=== PATIENT | female | born 1950 | race Caucasian/White ===

== ENCOUNTER 2017-06-16 10:27 | Outpatient (CLI) | payer MEDICARE ==
[2017-06-16] MEDS ORDERED: Gadobenate Dimeglumine 529 MG/1 ML (20ML VIAL) ONE (13:28)
== END 2017-06-16 10:28 | disposition home or self-care (01) ==
LOC: BICMRI 10:27
PROVIDERS: ATTEND Psychiatry & Neurology Neurology
DX: G35 Multiple sclerosis (principal); G37.9 Demyelinating disease of central nervous system, unspecified
CPT/HCPCS: 36415; 70553; 80053; 85025; A9579

== ENCOUNTER 2018-07-06 08:31 | Outpatient (CLI) | payer MEDICARE ==
--- NOTE | 2018-07-06 17:14 | MRI ---
MRI BRAIN WITH AND WITHOUT CONTRAST: Date: 07/06/18 INDICATIN: Migraine with aura. History of sellar/suprasellar mass. COMPARISON: 06/30/13. FINDINGS: Dating back to 2013 exam, there is progressive volume of an enhancing sellar/suprasellar mass located at and to the right of midline with slight leftward deviation, as well as effacement of the infundib ulum. Mass again demonstrates intrinsic T1 hyperintensity, although there is an enhancing component w hich is increasing in volume. This favors a slow growing craniopharyngioma. Craniocaudal dimension of the mass is approximately 8 mm and transversion dimension is approximately 6 mm. Mass abuts the unde rsurface of the optic chiasm. No ventriculomegaly or midline shift. No acute territorial infarction Redemonstration of multifocal w franchesca matter signal abnormalities as were documented on prior brain MRI of 06/16/17, in keeping with sachin mahad's history of multiple sclerosis. IMPRESSION: 1. Interval size progression of sellar/suprasellar mass as discussed above, favoring a craniopharyng ioma. 2. Redemonstration of multifocal white matter signal abnormalities of the cerebral hemispheres, mili elative to patient's provided clinical history of multiple sclerosis. 3. No acute intra-axial mass effect. POS: NATALYA
== END 2018-07-06 08:32 | disposition home or self-care (01) ==
LOC: BICMRI 08:31
PROVIDERS: ATTEND Psychiatry & Neurology Neurology
DX: G43.109 Migraine with aura, not intractable, without status migrainosus (principal); G35 Multiple sclerosis; E23.7 Disorder of pituitary gland, unspecified; R90.89 Other abnormal findings on diagnostic imaging of central nervous system
CPT/HCPCS: 70553; 82565

== ENCOUNTER 2020-04-19 06:31 | Outpatient (CLI) | payer MEDICARE ==
[2020-04-19 10:31] LABS: Bilirubin Neg (Negative); Blood, Urine Negative (Negative); Clarity Clear (Clear); Glucose, Urine (Dipstick) Normal (Negative); Ketone, Urine Negative (Negative); Leukocyte Negative (Negative); Nitrite Negative (Negative); Protein, Urine (Dipstick) 15 mg/dl (Neg-Trace); Urobilinogen Normal mg/dL (Less than 2)
[2020-04-19 10:38] LABS: #Eosinphils 0.1 10x3/uL (0.0-0.5); #Monocytes 0.4 10x3/uL (0.0-1.1); #Neutrophils 2.3 10x3/uL (1.5-8.4); %Eosinophils 1.2 % (0.0-6.0); %Lymphocytes 32.6 % (18.0-47.0); %Monocytes 9.4 % (0.0-10.0); %Neutrophils 55.6 % (40.0-75.0); Hemoglobin 13.9 g/dL (12.0-16.0); Mean Corpuscular HGB CONC 32.6 G/DL (32.0-36.0); Mean Corpuscular Hemoglobin 30.1 PG (27.0-33.0); Mean Corpuscular Volume 92.4 fl (80.0-100.0); Mean Platelet Volume 11.3 fl (7.4-10.4); Platelet Count 229 10x3/uL (130-400); RBC Distribution Width 12.2 % (11.5-14.5); RBC/HPF 0-3 HPF (0-3); Red Blood Cell (RBC) Count 4.62 10x6/uL (3.90-5.20); Squamous Epithelial 0-3 HPF (0-3); WBC/HPF 0-3 HPF (0-3); White Blood Cell (WBC) Count 4.1 10x3/uL (4.5-11.0)
[2020-04-19 10:39] LABS: Bacteria/HPF Rare-Few HPF (None Seen); Calcium Oxalate Crystals 1+ HPF (None Seen)
[2020-04-19 10:40] LABS: Mucous/LPF Rare LPF (<2+)
[2020-04-19 10:52] LABS: Prothrombin Time 10.7 sec (9.5-12.1)
[2020-04-19 11:47] LABS: Anion Gap 14 mmol/L (10-20); BUN (Urea Nitrogen) 14 mg/dL (9.8-20.1); Calc. Creatinine Clearance 0 mL/min (70-130); Calcium 9.4 mg/dL (7.8-10.44); Carbon Dioxide 26 mmol/L (23-31); Chloride 105 mmol/L (98-107); Glucose 100 mg/dL (80-115); Potassium 4.4 mmol/L (3.5-5.1); Sodium 141 mmol/L (136-145)
[2020-04-19 18:33] LABS: SARS-CoV-2 MS2 Positive; SARS-CoV-2 N Gene Negative; SARS-CoV-2 S Gene Negative; SARS-CoV-2 by NAA Not Detected (NotDetected); SARS-CoV-2 orf1ab Negative
--- NOTE | 2020-04-19 20:33 | EKG ---
Test Reason : Blood Pressure : / mmHG Vent. Rate : 063 BPM Atrial Rate : 063 BPM P-R Int : 138 ms QRS Dur : 080 ms QT Int : 394 ms P-R-T Axes : 077 054 061 degrees QTc Int : 403 ms Normal sinus rhythm Normal ECG No previous ECGs available Confirmed by DR. Padmini HILL MD ([id number]) on 04/19/2020 8:33:20 PM Referred By: MARIAN Confirmed By:DR. Padmini HILL MD
== END 2020-04-19 06:32 | disposition home or self-care (01) ==
LOC: LABBT 06:31
PROVIDERS: ATTEND Orthopaedic Surgery
DX: Z01.818 Encounter for other preprocedural examination (principal); Z20.828 Contact with and (suspected) exposure to other viral communicable diseases; M17.11 Unilateral primary osteoarthritis, right knee
CPT/HCPCS: 80048; 81001; 85025; 85610; 87081; 93005; U0003; 87635; 93010

== ENCOUNTER 2020-04-24 06:53 | Day surgery (SDC) | payer MEDICARE ==
[2020-04-18 09:52] VITALS: BMI 28.3
[2020-04-24] MEDS ORDERED: Vancomycin 1 GM/200 ML BAG ONE (07:33)
[2020-04-24] MEDS ORDERED: Tranexamic Acid 1,000 MG/10 ML VIAL ONE (07:33)
[2020-04-24] MEDS ORDERED: Sodium Chloride 0.9% 100 ML ONE (07:33)
[2020-04-24] MEDS ORDERED: Midazolam HCl 2 mg/2 ml Vial ONE (08:17)
[2020-04-24] MEDS ORDERED: Fentanyl 100 MCG/2 ML VIAL ONE ×5 (08:17→14:44)
[2020-04-24] MEDS ORDERED: HYDROcodone/Acetaminophen 10/325 mg Tablet PO PRN ×3 (08:59→09:30)
[2020-04-24] MEDS ORDERED: Acetaminophen 325 MG TAB PO PRN (08:59)
[2020-04-24] MEDS ORDERED: Ondansetron PF 4 MG/2 ML Vial IVP PRN ×2 (08:59→09:30)
[2020-04-24] MEDS ORDERED: diphenhydrAMINE 25 MG CAP PO PRN (08:59)
[2020-04-24] MEDS ORDERED: Zolpidem Tartrate 5 MG TAB PO PRN ×2 (08:59→09:30)
[2020-04-24] MEDS ORDERED: Promethazine HCl 25 MG/ML VIAL IM PRN ×3 (08:59→11:05)
[2020-04-24] MEDS ORDERED: Fentanyl 100 MCG/2 ML VIAL IV PRN (09:26)
[2020-04-24] MEDS ORDERED: traMADol HCl 50 MG TAB PO PRN ×2 (09:30)
[2020-04-24] MEDS ORDERED: Ropivacaine HCl/PF 250 ML in Premix Bag 1 BAG NERVE BLCK SCH (09:30)
[2020-04-24] MEDS ORDERED: Ropivacaine 0.2% HCl/PF (40 MG/20 ML VIAL) ONE (09:54)
[2020-04-24] MEDS ORDERED: Dexamethasone 20 MG/5 ML VIAL ONE (09:54)
[2020-04-24] MEDS ORDERED: Bupivacaine HCl 0.5%/Epinephrine 1:200,000/PF 30 ml Vial ONE (09:54)
[2020-04-24] MEDS ORDERED: PROPOFOL 200 MG/20 ML VIAL ONE (09:54)
[2020-04-24] MEDS ORDERED: Ondansetron PF 4 MG/2 ML Vial ONE (09:54)
[2020-04-24] MEDS ORDERED: Promethazine HCl 25 MG/ML VIAL SLOW IVP PRN (11:05)
[2020-04-24] MEDS ORDERED: Ondansetron HCl/PF 4 MG/2 ML Vial IVP PRN (11:05)
--- NOTE | 2020-04-24 11:12 | OP ---
DATE OF PROCEDURE: 04/24/2020 PROCEDURE PERFORMED: Right total knee arthroplasty using [place] [employer] 4 femur, 3 tibia, 9-mm CS X3 polyethylene and A29 patella. DIRECTOR IT PROJECT: Zaida Davis PA-C The executive administrative assistant/co-surgeon was present through the entire procedure and was responsible for providing exposure, tissue retraction and any necessary limb or tissue manipulation required to obtain necessary reduction or hardware placement. The executive administrative assistant/co-surgeon also provided bleeding control, tissue closure, and suturing in conjunction with the primary surgeon. BLOOD LOSS: Minimal. SPECIMEN: None. DRAINS: None. COMPLICATION: None. TOURNIQUET TIME: 53 minutes. PROCEDURE IN DETAIL: After informed consent was obtained in the preoperative holding area, the patient was taken to the operative suite where general anesthesia was induced. Once adequate level of general anesthesia was obtained, the patient was positioned and a well-padded tourniquet was placed around the right proximal thigh. The right lower extremity was then prepped and draped in the usual sterile fashion. Prior to exsanguination, a time-out was called and all members of the surgical team agreed upon site, surgeon, and patient. The extremity was then exsanguinated and the tourniquet was raised. A midline longitudinal incision was then made directly over the patella extending 2 fingerbreadths above the superior pole of the patella and 2 fingerbreadths inferior to the inferior patellar pole of the patella. Deeper subcutaneous layers were dissected sharply and local bleeding was controlled with Bovie electrocautery. A quad tendon longitudinal split was then made sharply and a median parapatellar arthrotomy was carried out both sharp and with Bovie electrocautery, carried down to 1 fingerbreadth medial to the tibial tubercle. The knee was then placed into flexion and the patella was everted nicely, and a copious fat pad ectomy was performed allowing for greater exposure of the tibia. The computer-assisted distal femoral fiducial was then placed and pinned firmly, and the distal femoral cutting guide was pinned firmly into place. The oscillating saw was then used to remove the appropriate amount of bone. The 4-in-1 cutting block was then placed on the distal femur and the oscillating saw was used to remove the appropriate amount of bone off the anterior, posterior, and chamfer cuts. After completion of bone cuts, the anterior cruciate ligament was resected sharply and the posterior cruciate ligament retractor was placed and the tibia was subluxed for better exposure. Partial meniscectomies were carried out, and the tibial computer-assisted fiducial was pinned, and the cutting guide was placed. Oscillating saw was then used to remove the bone, with Hohmann retractors used to take care and protect the collateral ligaments. After the tibial resection was performed, a laminar sports management professor was placed in between the freshened bone cuts. The knee placed at 90 degrees and further bilateral meniscectomies were carried out, and the curved osteotome and curettage were used to remove any excess bone spurs in the posterior compartment. The trial femoral component, tibial baseplate were placed with the appropriate polyethylene trial insert with an appropriate polyethylene spacer and patellar button. The knee was taken through full range of motion with flexion and extension from 0 to 90 degrees and patellar broach squarely in the trochlea without any squinting or subluxation noted. The knee was also stable to varus and valgus stressing at 0, 15, 45, and 90 degrees of flexion. The drawer was negative. All trial components were then removed and the keel punch was used to provide the appropriate defect in the tibia with a mallet. The freshened bone cuts were copiously irrigated with pulsatile lavage of about 1.5 L to remove all excess debris. The freshened bone cuts were then dried with suction and lap sponge. The knee was placed in flexion and retractors were placed to provide access to all bone cuts. Tobramycin-impregnated methyl methacrylate cement was then placed on the freshened bone cuts and implants which were malleted firmly into place. Curettage and Riesel elevators were used to remove any excess bone cement. The knee was placed into full extension and the patellar button was placed under compression, and the cement was allowed to cure. Once completed, the components were again taken through full range of motion and copious irrigation of the knee was carried out with another liter of normal saline. All components were inspected fully with full range of motion and varus and valgus stressing. There was no laxity noted and full extension was observed clinically. Primary closure was accomplished with #2 interrupted Vicryl stitch of the arthrotomy defect. This was oversewn with a #2 running Quill barbed stitch. The gravitational platelet system was then injected into the arthrotomy prior to closure. The subcutaneous layer was then closed with a running 0 barbed Monocryl stitch and skin closure accomplished with a running subcuticular 3-0 Monocryl barbed Quill stitch and augmented with cement on the skin. Tourniquet was lowered. Good spontaneous return of distal pulses was noted clinically and a sterile dressing was applied to the incision. The procedure was terminated without any complications. The patient was awakened in the operative suite and the was removed, and the patient was taken to the recovery room in stable condition. Job ID: [id number]
--- NOTE | 2020-04-24 11:49 | RAD ---
XR Knee Rt 2 View History: Total knee postop Comparison: None. Findings: Satisfactory appearance right total knee arthroplasty and patellar resurfacing. Expected po stoperative gas and edema. 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 Impression: Satisfactory postoperative appearance.
[2020-04-24] MEDS ORDERED: Promethazine HCl 25 MG/ML VIAL ONE (11:52)
[2020-04-24] MEDS ORDERED: Ketorolac Tromethamine 30 MG/ML VIAL ONE (12:11)
[2020-04-24] MEDS: Ketorolac Tromethamine 30 MG/ML VIAL IVP SCH ×3 (12:12→23:21)
[2020-04-24] MEDS: Sodium Chloride 0.9% 1,000 ML IV SCH ×2 (17:22→21:07)
[2020-04-24] MEDS: CEFAZOLIN 2 GM in Premix Bag 1 BAG IVPB SCH (18:18)
[2020-04-24] MEDS: Aspirin 81 mg Enteric Coated Tablet PO SCH (21:06)
[2020-04-25] MEDS: CEFAZOLIN 2 GM in Premix Bag 1 BAG IVPB SCH (02:17)
[2020-04-25] MEDS: Ketorolac Tromethamine 30 MG/ML VIAL IVP SCH ×4 (05:10→23:40)
[2020-04-25] MEDS: Sodium Chloride 0.9% 1,000 ML IV SCH ×2 (05:12→15:15)
[2020-04-25 06:16] LABS: Hemoglobin 12.2 g/dL (12.0-16.0); Mean Corpuscular HGB CONC 33.7 g/dL (32.0-36.0); Mean Corpuscular Hemoglobin 31.5 pg (27.0-31.0); Mean Corpuscular Volume 93.5 fL (78.0-98.0); Mean Platelet Volume 9.4 fL (7.4-10.4); Platelet Count 204 thou/uL (130-400); RBC Distribution Width 11.3 % (11.5-14.5); Red Blood Cell (RBC) Count 3.86 mill/uL (4.20-5.40); White Blood Cell (WBC) Count 13.7 thou/uL (4.8-10.8)
[2020-04-25] MEDS: Multivitamin W/ Minerals 1 TAB PO SCH (08:52)
[2020-04-25] MEDS: Senokot S 8.6-50 MG TAB PO SCH ×2 (08:52→20:00)
[2020-04-25] MEDS: Calcium Polycarbophil 625 MG TAB PO SCH (08:53)
[2020-04-25] MEDS: Aspirin 81 mg Enteric Coated Tablet PO SCH ×2 (08:53→20:00)
[2020-04-25] MEDS: Zinc Sulfate 220 MG CAP PO SCH (08:53)
[2020-04-25] MEDS: Cholecalciferol 1,000 UNITS (25 MCG) TAB PO SCH (08:53)
[2020-04-25] MEDS: Vit A,C & E/Lutein/Minerals Tablet PO SCH (08:53)
[2020-04-25] MEDS: Ferrous Gluconate 324 MG TAB PO SCH ×2 (08:53→20:00)
[2020-04-25] MEDS ORDERED: Multivitamin W/ Minerals 1 TAB PO SCH (09:00)
[2020-04-25] MEDS: Potassium Chloride 8 MEQ TAB PO SCH (09:45)
[2020-04-25] MEDS: HYDROcodone/Acetaminophen 10/325 mg Tablet PO PRN ×3 (14:10→23:38)
[2020-04-26] MEDS: Sodium Chloride 0.9% 1,000 ML IV SCH ×3 (00:45→22:14)
[2020-04-26] MEDS: Ketorolac Tromethamine 30 MG/ML VIAL IVP SCH (05:40)
[2020-04-26] MEDS: HYDROcodone/Acetaminophen 10/325 mg Tablet PO PRN ×3 (06:43→16:13)
[2020-04-26 07:04] LABS: Hemoglobin 11.8 g/dL (12.0-16.0); Mean Corpuscular HGB CONC 33.5 g/dL (32.0-36.0); Mean Corpuscular Hemoglobin 31.3 pg (27.0-31.0); Mean Corpuscular Volume 93.4 fL (78.0-98.0); Platelet Count 183 thou/uL (130-400); RBC Distribution Width 11.4 % (11.5-14.5); Red Blood Cell (RBC) Count 3.78 mill/uL (4.20-5.40)
[2020-04-26] MEDS: Senokot S 8.6-50 MG TAB PO SCH ×2 (08:20→21:01)
[2020-04-26] MEDS: Aspirin 81 mg Enteric Coated Tablet PO SCH ×2 (08:21→21:01)
[2020-04-26] MEDS: Multivitamin W/ Minerals 1 TAB PO SCH (08:21)
[2020-04-26] MEDS: Ferrous Gluconate 324 MG TAB PO SCH ×2 (08:21→21:01)
[2020-04-26] MEDS: Zinc Sulfate 220 MG CAP PO SCH (08:21)
[2020-04-26] MEDS: Vit A,C & E/Lutein/Minerals Tablet PO SCH (08:21)
[2020-04-26] MEDS: Cholecalciferol 1,000 UNITS (25 MCG) TAB PO SCH (08:21)
[2020-04-26] MEDS: Calcium Polycarbophil 625 MG TAB PO SCH (08:21)
[2020-04-26] MEDS: Potassium Chloride 8 MEQ TAB PO SCH (08:23)
[2020-04-26] MEDS ORDERED: Ondansetron ODT 4 MG TAB SL PRN (14:15)
[2020-04-27] MEDS: HYDROcodone/Acetaminophen 10/325 mg Tablet PO PRN ×3 (00:13→09:43)
[2020-04-27] MEDS: Sodium Chloride 0.9% 1,000 ML IV SCH (06:51)
[2020-04-27 08:35] VITALS: TEMP 98.2
[2020-04-27] MEDS: Calcium Polycarbophil 625 MG TAB PO SCH (08:52)
[2020-04-27] MEDS: Senokot S 8.6-50 MG TAB PO SCH (08:52)
[2020-04-27] MEDS: Aspirin 81 mg Enteric Coated Tablet PO SCH (08:52)
[2020-04-27] MEDS: Ferrous Gluconate 324 MG TAB PO SCH (08:52)
[2020-04-27] MEDS: Zinc Sulfate 220 MG CAP PO SCH (08:52)
[2020-04-27] MEDS: Cholecalciferol 1,000 UNITS (25 MCG) TAB PO SCH (08:52)
[2020-04-27] MEDS: Multivitamin W/ Minerals 1 TAB PO SCH (08:52)
[2020-04-27] MEDS: Vit A,C & E/Lutein/Minerals Tablet PO SCH (08:52)
[2020-04-27] MEDS: Potassium Chloride 8 MEQ TAB PO SCH (08:56)
[2020-04-27 13:22] VITALS: BP 125/67
[2020-05-01] MEDS ORDERED: [UNRECOGNIZED DRUG - OTHER] IM SCH (09:00)
--- NOTE | 2020-05-01 10:35 | DIS ---
DATE OF ADMISSION: 04/24/2020 DATE OF DISCHARGE: 04/27/2020 This is Jesse Caery PA-C dictating a report for Chad Talamantes MD. PREOPERATIVE DIAGNOSIS: Right knee degenerative arthritis. POSTOPERATIVE DIAGNOSIS: Right knee degenerative arthritis. PROCEDURE PERFORMED: The patient underwent a right total knee replacement. HOSPITAL COURSE: Hospital stay was unremarkable. She was admitted to [place] [id number], where she worked with staff, Physical therapy, Occupational therapy, and progressed quite well. By 04/27/2020, she is ready to discharge home. DISCHARGE CONDITION: Good/stable. DISPOSITION: Home with family. FOLLOWUP: Followup would be in 2 to 3 weeks or sooner if there are problems and/or concerns. DISCHARGE MEDICATIONS: Given with usage instructions. Job ID: [id number]
== END 2020-04-27 14:01 | disposition home or self-care (01) ==
LOC: SDC 06:53 → EDSTATUS 09:30 → SURG B 16:50 → SDC 04-27 14:01
PROVIDERS: ATTEND Orthopaedic Surgery
PROC: 0SRC0J9 Replacement of Right Knee Joint with Synthetic Substitute, Cemented, Open Approach (ICD-10-PCS; principal; 2020-04-24)
DX: M17.11 Unilateral primary osteoarthritis, right knee (principal); K21.9 Gastro-esophageal reflux disease without esophagitis; Z79.899 Other long term (current) drug therapy
CPT/HCPCS: 27447; 73560; 85027; 97110 ×3; 97116 ×4; 97139 ×4; 97530 ×2; C1713; C1776; 36415; J0690; J1100; J1885; J2250; J2405; J2550; J2704; J2795; J3010; J3370; J3490; Q0162; Q0163

== ENCOUNTER 2022-02-04 09:46 | Outpatient (CLI) | payer MEDICARE ==
[2022-02-04 11:37] LABS: #Basophils 0.1 10x3/uL (0.0-0.2); #Eosinphils 0.1 10x3/uL (0.0-0.5); #Monocytes 0.4 10x3/uL (0.0-1.1); #Neutrophils 2.5 10x3/uL (1.5-8.4); %Eosinophils 1.9 % (0.0-6.0); %Lymphocytes 34.9 % (18.0-47.0); Mean Corpuscular HGB CONC 34.3 g/dL (32.0-36.0); Mean Corpuscular Hemoglobin 30.7 pg (27.0-33.0); Mean Corpuscular Volume 89.4 fl (81.6-98.3); Mean Platelet Volume 11.3 fl (7.4-10.4); Platelet Count 222 10x3/uL (150-450); RBC Distribution Width 11.9 % (11.5-14.5); Red Blood Cell (RBC) Count 4.24 10x6/uL (3.90-5.03); White Blood Cell (WBC) Count 4.8 10x3/uL (3.5-10.5)
[2022-02-04 11:51] LABS: Anion Gap 13 mmol/L (10-20); BUN (Urea Nitrogen) 16 mg/dL (9.8-20.1); Calc. Creatinine Clearance 0 mL/min (70-130); Calcium 9.4 mg/dL (7.8-10.44); Carbon Dioxide 26 mmol/L (23-31); Chloride 107 mmol/L (98-107); Estimated GFR 89; Glucose 110 mg/dL (80-115); Potassium 4.5 mmol/L (3.5-5.1); Sodium 141 mmol/L (136-145)
== END 2022-02-04 09:47 | disposition home or self-care (01) ==
LOC: LABBT 09:46
PROVIDERS: ATTEND Orthopaedic Surgery
DX: Z01.818 Encounter for other preprocedural examination (principal); Z20.822 Contact with and (suspected) exposure to COVID-19
CPT/HCPCS: 80048; 85025; 87811; 93005; 93010

== ENCOUNTER 2022-02-07 05:47 | Day surgery (SDC) | payer MEDICARE ==
[2022-02-06 10:58] VITALS: BMI 27.4
[2022-02-07] MEDS ORDERED: Midazolam HCl 2 mg/2 ml Vial ONE ×2 (06:16→07:00)
[2022-02-07] MEDS ORDERED: SUGAMMADEX SODIUM 200 MG/2 ML VIAL ONE (06:17)
[2022-02-07] MEDS ORDERED: fentaNYL Citrate/PF 100 MCG/2 ML SYRINGE ONE (06:17)
[2022-02-07] MEDS ORDERED: Fentanyl 100 MCG/2 ML VIAL ONE (07:00)
[2022-02-07] MEDS ORDERED: Ropivacaine 0.5% HCl/PF (150 MG/30 ML VIAL) ONE (07:00)
[2022-02-07] MEDS ORDERED: Sodium Chloride 0.9% 100 ML ONE (07:22)
[2022-02-07] MEDS ORDERED: CEFAZOLIN 2 GM VIAL ONE (07:22)
[2022-02-07] MEDS ORDERED: PROPOFOL 200 MG/20 ML VIAL ONE (07:49)
[2022-02-07] MEDS ORDERED: PHENYLEPHRINE-NS 100 MCG/ML 10 ML SYRINGE ONE (07:49)
[2022-02-07] MEDS ORDERED: Ondansetron PF 4 MG/2 ML Vial ONE (07:49)
[2022-02-07] MEDS ORDERED: Dexamethasone 20 MG/5 ML VIAL ONE (07:49)
[2022-02-07] MEDS ORDERED: Promethazine HCl 25 MG/ML VIAL IM PRN (08:45)
[2022-02-07] MEDS ORDERED: traMADol HCl 50 MG TAB PO PRN ×2 (08:45)
[2022-02-07] MEDS ORDERED: Ondansetron PF 4 MG/2 ML Vial IVP PRN (08:45)
[2022-02-07] MEDS ORDERED: Zolpidem Tartrate 5 MG TAB PO PRN (08:45)
[2022-02-07] MEDS ORDERED: Ropivacaine 0.2% 550 ML 550 ML NERVE BLCK SCH (08:45)
[2022-02-07] MEDS ORDERED: HYDROcodone/Acetaminophen 10/325 mg Tablet PO PRN ×2 (08:45)
== END 2022-02-07 11:15 | disposition home or self-care (01) ==
LOC: SDC 05:47
PROVIDERS: ATTEND Orthopaedic Surgery
PROC: 0LQ10ZZ Repair Right Shoulder Tendon, Open Approach (ICD-10-PCS; principal; 2022-02-07)
PROC: 0LS30ZZ Reposition Right Upper Arm Tendon, Open Approach (ICD-10-PCS; 2022-02-07)
PROC: 0RHJ04Z Insertion of Internal Fixation Device into Right Shoulder Joint, Open Approach (ICD-10-PCS; 2022-02-07)
DX: M75.111 Incomplete rotator cuff tear or rupture of right shoulder, not specified as traumatic (principal); M66.821 Spontaneous rupture of other tendons, right upper arm; M75.81 Other shoulder lesions, right shoulder; G35 Multiple sclerosis; Z85.3 Personal history of malignant neoplasm of breast; Z79.899 Other long term (current) drug therapy; Z79.2 Long term (current) use of antibiotics; Z87.891 Personal history of nicotine dependence; Z20.822 Contact with and (suspected) exposure to COVID-19; Z98.890 Other specified postprocedural states
CPT/HCPCS: 23412; 23430; A4306; C1713; J0690; J1100; J2250; J2405; J2704; J2795; J3010; J3490

== ENCOUNTER 2023-07-18 10:00 | Outpatient (CLI) | payer MEDICARE ==
[2023-07-18 11:39] LABS: #Basophils 0.04 10x3/uL (0.0-0.2); #Eosinphils 0.05 10x3/uL (0.0-0.5); #Monocytes 0.36 10x3/uL (0.0-1.1); #Neutrophils 2.52 10x3/uL (1.5-8.4); %Basophils 0.8 % (0.0-2.0); %Eosinophils 1.1 % (0.0-6.0); %Lymphocytes 37.3 % (18.0-47.0); %Monocytes 7.6 % (0.0-10.0); Hemoglobin 13.7 g/dL (12.0-15.5); Mean Corpuscular HGB CONC 35.1 g/dL (32.0-36.0); Mean Corpuscular Volume 91.1 fl (81.6-98.3); Mean Platelet Volume 11.3 fl (7.4-10.4); Platelet Count 212 10x3/uL (150-450); Red Blood Cell (RBC) Count 4.28 10x6/uL (3.90-5.03); White Blood Cell (WBC) Count 4.8 10x3/uL (3.5-10.5)
[2023-07-18 11:54] LABS: Prothrombin Time 10.7 sec (9.5-12.1)
[2023-07-18 12:16] LABS: Anion Gap 11 mmol/L (10-20); BUN (Urea Nitrogen) 19 mg/dL (9.8-20.1); Calc. Creatinine Clearance 0 mL/min (70-130); Calcium 9.2 mg/dL (7.8-10.44); Carbon Dioxide 25 mmol/L (23-31); Chloride 107 mmol/L (98-107); Estimated GFR 90; Glucose 117 mg/dL (80-115); Potassium 4.4 mmol/L (3.5-5.1); Sodium 139 mmol/L (136-145)
== END 2023-07-18 10:01 | disposition home or self-care (01) ==
LOC: LABBT 10:00
PROVIDERS: ATTEND Orthopaedic Surgery
DX: Z01.818 Encounter for other preprocedural examination (principal); M17.12 Unilateral primary osteoarthritis, left knee
CPT/HCPCS: 80048; 85025; 85610; 87081; 93005; 93010

== ENCOUNTER 2023-10-31 15:16 | Outpatient (CLI) | payer MEDICARE | END 2023-10-31 15:17 | disposition home or self-care (01) | LOC: BICCT 15:16 | PROVIDERS: ATTEND Orthopaedic Surgery | DX: Z47.1 Aftercare following joint replacement surgery (principal); M25.462 Effusion, left knee; Z96.652 Presence of left artificial knee joint ==